=== PATIENT | male | born 1985 | race African-American/Black ===

== ENCOUNTER 2020-07-15 22:06 | Emergency (ER) | payer OTHER ==
[~2020-07-15] VITALS: Ht 172.7 cm; Wt 121.6 kg
[2020-07-15] MEDS ORDERED: ZESTRIL5 MG PO (22:23)
[2020-07-15] MEDS ORDERED: LIPITOR10 MG PO (22:23)
[2020-07-15] MEDS ORDERED: FLEXERIL PO (22:32)
[2020-07-15] MEDS ORDERED: IBUPROFEN 800800 M1 PO (22:32)
[2020-07-15] MEDS ORDERED: NORCO 5-325 TA1 EAC2 PO (22:32)
[2020-07-15 22:35] VITALS: BP 152/101
== END 2020-07-15 22:35 | disposition home or self-care (01) ==
LOC: M.ERS 22:06
DX: S16.1XXA Strain of muscle, fascia and tendon at neck level, initial encounter (principal); V89.2XXA Person injured in unspecified motor-vehicle accident, traffic, initial encounter; Y93.89 Activity, other specified; Y92.89 Other specified places as the place of occurrence of the external cause; Y99.8 Other external cause status